=== PATIENT | female | born 1955 | race Caucasian/White ===

== ENCOUNTER 2021-12-02 01:09 | Day surgery (SDC) | payer MEDICARE, SELFPAY ==
[2021-11-15 13:21] VITALS: BMI 21.4
[2021-12-02 12:38] VITALS: BP 123/81; PULSE 61; RESP 18; TEMP 36.1; O2SAT 96; BMI 21.4
[2021-12-02] MEDS: LACTATED RINGERS 1,000 ML 150 ML IV CONT (12:41)
--- NOTE | 2021-12-02 12:58 | PM.HPGS ---
History of Present Illness History of Present Illness Consent: Risks, benefits, and alternatives have been discussed and questions answered. Patient agrees to proceed with procedure. Chief complaint: GERD, Nausea, change in bowel habits Narrative: Miroslava Batres is a 66 year old female With a history of gastric ulcers. Apparently her last EGD did not reveal ulcers. She has suffered from a great deal of abdominal pain and change in bowel habits. She has been very constipated lately. Trials of Linzess and also Trulance were not Well tolerated. They did not relieve her of abdominal discomfort and bloating although did cause loose stools. Review of Systems Review of Systems: All systems reviewed & are unremarkable except as noted in HPI and below PMFSH Past Medical History Medical History Abdominal pain Anxiety Arthritis Gastric ulcer Hip replacement planned Irritable bowel syndrome with predominant constipation Family History Family History Father Cerebrovascular accident Mother Hypertension Social History Social History Smoking status: Never smoker Alcohol intake: current Alcohol use details: social Substance use: never Substance use type: does not use Living arrangements: with family Additional living arrangements comments: lives with family Spiritual care concerns: No Meds Home Medications and Allergies Home Medications Medication Instructions Recorded Confirmed Type acyclovir 400 mg tablet 400 mg PO DAILY 08/02/21 12/02/21 History alprazolam 0.25 mg tablet 0.25 mg PO DAILY 08/02/21 12/02/21 History azathioprine 50 mg tablet (Imuran) 50 mg PO DAILY 08/02/21 12/02/21 History celecoxib 200 mg capsule (Celebrex) 200 mg PO DAILY 08/02/21 12/02/21 History cyanocobalamin (vitamin B-12) 1,000 mcg PO DAILY 08/02/21 12/02/21 History 1,000 mcg capsule cyclobenzaprine 10 mg tablet 10 mg PO TID 08/02/21 12/02/21 History dexlansoprazole 60 mg 60 mg PO DAILY 08/02/21 12/02/21 History capsule,biphase delayed release (Dexilant) diclofenac sodium 1 % topical gel 2 g topical QID 08/02/21 11/12/21 History duloxetine 60 mg capsule,delayed 60 mg PO DAILY 08/02/21 12/02/21 History release sprinkle folic acid 800 mcg tablet 0.8 mg PO DAILY 08/02/21 12/02/21 History gabapentin 400 mg capsule 400 mg PO DAILY 08/02/21 12/02/21 History hydroxychloroquine 200 mg tablet 200 mg PO DAILY 08/02/21 12/02/21 History (Plaquenil) magnesium glycinate 100 mg tablet 100 mg PO DAILY 08/02/21 12/02/21 History ondansetron HCl 4 mg tablet 4 mg PO Q8H 08/02/21 12/02/21 History tramadol 50 mg tablet 50 mg PO Q6H PRN Pain, Mild 08/02/21 12/02/21 History tumeric 100 mg-chris 150 mg-olive 100 cap PO 08/02/21 11/12/21 History 50 mg-oreg 150 mg-caprylate capsule plecanatide 3 mg tablet (Trulance) 3 mg PO DAILY 1 month #30 tabs 10/29/21 12/02/21 Rx Allergies Allergy/AdvReac Type Severity Reaction Status Date / Time No Known Allergies Allergy Verified 12/02/21 12:35 Vital Signs Vital Signs - 24 hr 12/02/21 12:38 Temperature 36.1 C L Pulse Rate 61 Respiratory Rate 18 Blood Pressure 123/81 Pulse Oximetry 96 Oxygen Delivery Room Air Exam Const: General: alert Orientation/consciousness: patient oriented x3 Resp: Auscultation: clear to auscultation bilaterally Cardio: Rhythm: regular rhythm GI: GI Palp: Yes Soft to palpation and No Tenderness to palpation present (GI) Neuro: General: patient oriented x3 Assessment and Plan Assessment and plan (1) Epigastric pain: Code(s): R10.13 - Epigastric pain Status: Acute Assessment and Plan: EGD with possible biopsy or dilatation or cautery. (2) Change in bowel habits: Code(s): R19.4 - Change in bowel habit Status: Acute Assessment and Plan:
--- NOTE | 2021-12-02 13:43 | SUR.OPER ---
EGD END 1337 COLONOSCOPY START 1348
[2021-12-02 14:00] VITALS: BP 130/75; PULSE 59; RESP 24; O2SAT 98
[2021-12-02 14:10] VITALS: BP 138/75; PULSE 54; RESP 23; O2SAT 100
[2021-12-02 14:20] VITALS: BP 131/74; PULSE 54; RESP 24; O2SAT 100
== END 2021-12-02 14:35 | disposition home or self-care (01) ==
PROVIDERS: PCP Family Medicine; Visit Provider Internal Medicine Gastroenterology
PROC: 0DJ08ZZ Inspection of Upper Intestinal Tract, Via Natural or Artificial Opening Endoscopic (ICD-10-PCS; CPT 43235; principal; 2021-12-02 13:30)
DX: R19.4 Change in bowel habit (principal); D12.8 Benign neoplasm of rectum; R10.13 Epigastric pain; K21.9 Gastro-esophageal reflux disease without esophagitis; F41.9 Anxiety disorder, unspecified; R10.9 Unspecified abdominal pain; Z87.11 Personal history of peptic ulcer disease; K58.1 Irritable bowel syndrome with constipation
CPT/HCPCS: 45385; 43239; 87081; 88305; J2704; J7120

== ENCOUNTER 2022-01-08 09:59 | Outpatient (CLI) | payer MEDICARE, SELFPAY ==
--- NOTE | ~2022-01-08 | US_ITS ---
US abdomen complete EXAMINATION: US Abdomen Complete INDICATION: Abdomen pain PROCEDURE: Realtime High Resolution abdomen ultrasound. COMPARISON: No prior studies for comparison FINDINGS: Gallbladder within normal limits. No gallstones, pericholecystic fluid, gallbladder wall t hickening or biliary dilatation. Common bile duct measures 6 mm. Liver echotexture within normal limits without focal mass. Pancreas within normal limits. Pancreati c tail is obscured by bowel gas. Spleen is unremarkeable. Renal echotexture is within normal limits bilaterally without hydronephrosis, contour deforming mass or renal stone. Right kidney measures 8.9 cm. Left kidney measures 9.5 cm. Visualized aspects of the aorta and IVC are within normal limits. Portal vein is patent. No sonograph ic Sepulveda's sign indicated by the technologist. IMPRESSION: 1: Normal abdominal ultrasound. Reviewed, dictated and finalized at location B.
--- NOTE | ~2022-01-08 | NM_ITS ---
EXAMINATION: NM hepatobiliary wo pharm DATE: 01/08/2022 12:43 CDT INDICATION: Abdominal pain, bloating and nausea COMPARISON: None. TECHNIQUE: 4.9 mCi Tc-99m mebrofenin (Choletec) was administered intravenously. Scintigraphic images of the abdomen were obtained for one hour. At the 1 hour time point, the patient drank 8 oz Ensure, and imaging was continued for 60 minutes. Gallbladder ejection fraction was calculated by the technol ogist. FINDINGS: There is normal clearance of radiotracer from the blood pool. There is homogeneous tracer u ptake by the liver. Activity progresses to the bowel and gallbladder. The gallbladder ejection fract ion is 80%. Note that with this technique, normal GBEF >= 33%. IMPRESSION: 1. Normal hepatobiliary scan. Reviewed, dictated and finalized at location B.
== END 2022-01-08 10:00 | disposition home or self-care (01) ==
PROVIDERS: PCP Family Medicine; Visit Provider Nurse Practitioner Family
DX: R10.9 Unspecified abdominal pain (principal); R11.0 Nausea; R14.0 Abdominal distension (gaseous)
CPT/HCPCS: 76700; 78226; A9537

== ENCOUNTER 2022-01-29 10:30 | Outpatient (CLI) | payer MEDICARE, SELFPAY ==
[2022-01-29 10:52] LABS: Hematocrit 37.1 % (37.0-47.0); Hemoglobin 12.4 g/dL (12.0-15.0); Mean Corpuscular HGB Conc 33.4 g/dl (32-36); Mean Corpuscular Hemoglobin 35.2 pg (26-34); Mean Corpuscular Volume 105.4 fl (80-100); Platelet Count Result 217 k/mm3 (150-375); Red Blood Count 3.52 M/mm3 (4.2-5.4); Red Cell Distribution Width 12.7 % (11.5-14.5); White Blood Count 3.6 K/mm3 (4.5-10.0)
[2022-01-29 11:05] LABS: Alanine Aminotransferase 15 U/L (6-35); Albumin Level 4.4 g/dL (3.5-5.1); Alkaline Phosphatase 59 U/L (38-126); Anion Gap 6 mmol/L (8-16); Aspartate Amino Transferase 21 U/L (14-36); Bilirubin,Total 0.6 mg/dL (0.2-1.3); Blood Urea Nitrogen 6 mg/dL (7-17); Calcium 9.2 mg/dL (8.4-10.2); Carbon Dioxide 32 mmol/L (22-30); Chloride 101 mmol/L (98-107); Estimated Glomerular Filt Rate > 60; Glucose 88 mg/dL (65-110); Potassium 4.4 mmol/L (3.4-5.0); Sodium 139 mmol/L (137-145)
[2022-01-29 12:21] LABS: Folic Acid > 20.0 ng/mL (2.76->20)
[2022-02-03 21:18] LABS: Gliadin AB, IgG <1.0 U/mL (<15.0); TTG IGA AB <1.0 U/mL (<15.0)
== END 2022-01-29 10:31 | disposition home or self-care (01) ==
PROVIDERS: PCP Family Medicine; Visit Provider Nurse Practitioner Family
DX: R14.0 Abdominal distension (gaseous) (principal); K59.00 Constipation, unspecified; R10.13 Epigastric pain
CPT/HCPCS: 36415; 80053; 82607; 82746; 83516; 84443; 85027; 86255

== ENCOUNTER 2022-02-13 07:29 | Outpatient (CLI) | payer MEDICARE, SELFPAY ==
--- NOTE | ~2022-02-13 | NM_ITS ---
EXAM: NM gastric emptying study DATE: 02/13/2022 12:56 SOAPSTONER INDICATION: Postprandial bloating and gas TECHNIQUE: A gastric emptying study was performed using the methodology of Darius AVALOS, et al. J Nucl Med 2007; 48:568-572. The patient was given a meal consisting of 2 scrambled eggs labeled with mCi T c-99m sulfur colloid, 2 slices of toast, two packages of jam, and approximately 120 mL of water. Simu ltaneous anterior and posterior 1-min images of the abdomen were obtained with the patient supine at multiple time points over a total period of 4 hours. The geometric mean of anterior and posterior vie ws was determined, and the percentage retention was calculated for each time point. COMPARISON: Ultrasound dated 01/08/2022. FINDINGS: Gastric retention of the radiotracer-labeled meal was 56%, 26%, and 4% at the 1-hour, 2-ho ur, and 4-hour time points, respectively. With this technique, apparent rapid gastric emptying is sug gested by <30% gastric retention at 1 hour. Delayed gastric emptying is defined by gastric retention of >90% at 1 hour, >60% retention at 2 hours, or >10% retention at 4 hours. IMPRESSION: 1. Normal gastric emptying. Reviewed, dictated and finalized at location A. STONER IMPRESSION: 1. Normal gastric emptying.
== END 2022-02-13 07:30 | disposition home or self-care (01) ==
PROVIDERS: PCP Family Medicine; Visit Provider Nurse Practitioner Family
DX: R14.0 Abdominal distension (gaseous) (principal)
CPT/HCPCS: 78264; A9541

== ENCOUNTER 2023-11-10 06:11 | Day surgery (SDC) | payer MEDICARE, SELFPAY ==
[2023-11-04 08:21] VITALS: BMI 21.1
[2023-11-04 10:19] VITALS: BMI 23.1
--- NOTE | 2023-11-09 12:47 | PM.HPGS ---
History of Present Illness History of Present Illness Consent: Risks, benefits, and alternatives have been discussed and questions answered. Patient agrees to proceed with procedure. Chief complaint: Epigastric pain,Gastro-esophageal reflux disease Narrative: Miroslava Batres is a 68 year old female with Nausea/Vomiting/Epigastric pain/Burning sensation: Last EGD in 2021 showed non-erosive reflux disease (NERD). Patient reports vomiting at least 4 times a week, primarily in the mornings, persistent nausea worse in the mornings, and burning sensation in the epigastric region radiating to the right upper quadrant for the past 6 weeks. Review of Systems Review of Systems: All systems reviewed & are unremarkable except as noted in HPI and below PMFSH Past Medical History Medical History Abdominal bloating Abdominal pain Anxiety Arthritis Constipation Gastric ulcer Hip replacement planned Irritable bowel syndrome with predominant constipation Nausea and vomiting Family History Family History Father Cerebrovascular accident Mother Hypertension Social History Social History Smoking status: Never smoker Alcohol intake: current Drinks per week: 2 Alcohol use details: social Substance use: never Substance use type: does not use Living arrangements: with family Additional living arrangements comments: lives with family Spiritual care concerns: No Meds Home Medications and Allergies Home Medications Medication Instructions Recorded Confirmed Type acyclovir 400 mg tablet 400 mg PO DAILY PRN breakout 08/02/21 11/10/23 History alprazolam 0.25 mg tablet 0.25 mg PO DAILY PRN Anxiety 08/02/21 11/10/23 History azathioprine 50 mg tablet (Imuran) 50 mg PO DAILY 08/02/21 11/10/23 History celecoxib 200 mg capsule (Celebrex) 200 mg PO DAILY 08/02/21 11/10/23 History cyanocobalamin (vitamin B-12) 1,000 mcg PO DAILY 08/02/21 11/10/23 History 1,000 mcg capsule diclofenac sodium 1 % topical gel 2 g topical QID PRN Pain, Mild 08/02/21 11/10/23 History duloxetine 60 mg capsule,delayed 60 mg PO DAILY 08/02/21 11/10/23 History release sprinkle folic acid 800 mcg tablet 0.8 mg PO DAILY 08/02/21 11/10/23 History gabapentin 400 mg capsule 400 mg PO DAILY 08/02/21 11/10/23 History hydroxychloroquine 200 mg tablet 200 mg PO DAILY 08/02/21 11/10/23 History (Plaquenil) magnesium glycinate 100 mg (as 100 mg PO DAILY 08/02/21 11/10/23 History glycinate) tablet tramadol 50 mg tablet 50 mg PO Q6H PRN Pain, Mild 08/02/21 11/10/23 History belimumab 120 mg intravenous 400 mg IV ONCE 08/03/23 11/10/23 History solution (Benlysta) dicyclomine 20 mg tablet 20 mg PO TID PRN abdominal pain 08/31/23 11/10/23 Rx #30 tabs lubiprostone 24 mcg capsule 24 mcg PO BID 1 month #60 caps 08/31/23 11/10/23 Rx (Amitiza) dexlansoprazole 60 mg 60 mg PO DAILY 3 months #90 caps 09/22/23 11/10/23 Rx capsule,biphase delayed release (Dexilant) ondansetron HCl 4 mg tablet 4 mg PO Q8H PRN nausea and 10/20/23 11/10/23 Rx vomiting #20 tabs Allergies Allergy/AdvReac Type Severity Reaction Status Date / Time No Known Allergies Allergy Verified 11/10/23 06:57 Exam Const: General: alert Orientation/consciousness: patient oriented x3 Resp: Auscultation: clear to auscultation bilaterally Cardio: Rhythm: regular rhythm GI: GI Palp: Yes Soft to palpation and No Tenderness to palpation present (GI) Neuro: General: patient oriented x3 Assessment and Plan Assessment and plan (1) Nausea and vomiting: Code(s): R11.2 - Nausea with vomiting, unspecified Status: Acute
--- NOTE | 2023-11-09 13:47 | WPDANESEPPF ---
Anes - Initial Pre Proc Eval Procedure: Operation Date: 11/10/23 08:00 Proposed Procedures p Esophagogastroduodenoscopy - Sidney Sosa MD Date/Time: 11/09/23 13:47 Surgeon: Sidney Sosa MD Pre Op Diagnosis: Epigastric pain,Gastro-esophageal reflux disease Patient Data Age: 68 Gender: F Height: 1.73 m Weight: 69 kg Allergies Allergy/AdvReac Type Severity Reaction Status Date / Time No Known Allergies Allergy Verified 11/10/23 06:57 Home Medications Medication Instructions Recorded Confirmed Type acyclovir 400 mg tablet 400 mg PO DAILY PRN breakout 08/02/21 11/10/23 History alprazolam 0.25 mg tablet 0.25 mg PO DAILY PRN Anxiety 08/02/21 11/10/23 History azathioprine 50 mg tablet (Imuran) 50 mg PO DAILY 08/02/21 11/10/23 History celecoxib 200 mg capsule (Celebrex) 200 mg PO DAILY 08/02/21 11/10/23 History cyanocobalamin (vitamin B-12) 1,000 mcg PO DAILY 08/02/21 11/10/23 History 1,000 mcg capsule diclofenac sodium 1 % topical gel 2 g topical QID PRN Pain, Mild 08/02/21 11/10/23 History duloxetine 60 mg capsule,delayed 60 mg PO DAILY 08/02/21 11/10/23 History release sprinkle folic acid 800 mcg tablet 0.8 mg PO DAILY 08/02/21 11/10/23 History gabapentin 400 mg capsule 400 mg PO DAILY 08/02/21 11/10/23 History hydroxychloroquine 200 mg tablet 200 mg PO DAILY 08/02/21 11/10/23 History (Plaquenil) magnesium glycinate 100 mg (as 100 mg PO DAILY 08/02/21 11/10/23 History glycinate) tablet tramadol 50 mg tablet 50 mg PO Q6H PRN Pain, Mild 08/02/21 11/10/23 History belimumab 120 mg intravenous 400 mg IV ONCE 08/03/23 11/10/23 History solution (Benlysta) dicyclomine 20 mg tablet 20 mg PO TID PRN abdominal pain 08/31/23 11/10/23 Rx #30 tabs lubiprostone 24 mcg capsule 24 mcg PO BID 1 month #60 caps 08/31/23 11/10/23 Rx (Amitiza) dexlansoprazole 60 mg 60 mg PO DAILY 3 months #90 caps 09/22/23 11/10/23 Rx capsule,biphase delayed release (Dexilant) ondansetron HCl 4 mg tablet 4 mg PO Q8H PRN nausea and 10/20/23 11/10/23 Rx vomiting #20 tabs Patient hx anesthesia problems: none Family hx anesthesia problems: none Results Review: All pre-operative results and documents have been reviewed as part of the pre-operative evaluation. [facility] Past Medical History Medical History (Updated 10/20/23 @ 11:17 by ESPINOZA Higgins) Abdominal bloating Abdominal pain Anxiety Arthritis Constipation Gastric ulcer Hip replacement planned Irritable bowel syndrome with predominant constipation Nausea and vomiting Family History Family History Father Cerebrovascular accident Mother Hypertension Social History Social History Smoking status: Never smoker Alcohol intake: current Drinks per week: 2 Alcohol use details: social Substance use: never Substance use type: does not use Living arrangements: with family Additional living arrangements comments: lives with family Spiritual care concerns: No Anes - Eval Final PreProcedure Day of Procedure 11/09/23 13:47 Patient weight: normal Heart: regular rate and rhythm Lungs: clear to auscultation and normal air movement Airway: Mallampati scale class II Neurological: alert and oriented Last oral intake: >/= 8 hours ASA classification: II Emergent: no Anesthetic plan: proceed Anesthesia type and monitoring: general GIVS and standard monitoring Results Review: All pre-operative results and documents have been reviewed as part of the pre-operative evaluation. Informed Consent: The patient's anesthetic plan and its attendant risks and benefits were discussed with the patient/family/POA. Questions were solicited and answers provided to the satisfaction of the patient/family/POA.
[2023-11-10 06:59] VITALS: BP 124/91; PULSE 78; RESP 15; TEMP 36.9; O2SAT 100
[2023-11-10] MEDS: LACTATED RINGERS 1,000 ML 150 ML IV CONT (07:01)
[2023-11-10] MEDS: AMPICILLIN 2 GM/NS 100 ML 2 GM/100 ML BAG IVPB (07:08)
[2023-11-10 08:01] VITALS: BP 104/70; PULSE 74; RESP 16; O2SAT 100
[2023-11-10 08:11] VITALS: BP 99/66; PULSE 68; RESP 16; O2SAT 100
[2023-11-10 08:21] VITALS: BP 114/70; PULSE 72; RESP 16; O2SAT 100
--- NOTE | 2023-11-10 09:54 | WPDANESPN ---
Anes - Prog Note Post-Op Date/Time: 11/10/23 09:54 Cardiovascular status: normal Respiratory status: normal Airway patency: baseline Mental status: baseline Post-Op hydration status: normal Vital Signs: Last Vital Signs Temp 36.9 C 11/10/23 06:59 Pulse 72 11/10/23 08:21 Resp 16 11/10/23 08:21 BP 114/70 11/10/23 08:21 Pulse Ox 100 11/10/23 08:21 O2 Del Method Room Air 11/10/23 08:21 Pain Score (VAS): 0 I/O: Intake & Output 11/09/23 11/10/23 11/10/23 23:59 07:59 15:59 Intake Total 450 Balance 450 Post-procedural complaints: none Patient Feedback: Patient satisfied with anesthetic care. Other Findings: Patient vital signs back to baseline. Patient denies nausea and vomiting. Patient's pain under control. Patient OK for discharge.
== END 2023-11-10 08:35 | disposition home or self-care (01) ==
PROVIDERS: Visit Provider Internal Medicine Gastroenterology
PROC: 0DJ08ZZ Inspection of Upper Intestinal Tract, Via Natural or Artificial Opening Endoscopic (ICD-10-PCS; CPT 43235; principal; 2023-11-10 08:00)
DX: R11.2 Nausea with vomiting, unspecified (principal); K31.84 Gastroparesis
CPT/HCPCS: 43239

== ENCOUNTER 2023-11-10 07:27 | Outpatient (NON) | payer MEDICARE, SELFPAY | END 2023-11-10 07:28 | disposition home or self-care (01) | LOC: ANHLAB 11-11 07:30 | PROVIDERS: Visit Provider Internal Medicine Gastroenterology | DX: K21.9 Gastro-esophageal reflux disease without esophagitis (principal) | CPT/HCPCS: 88305 ==

== ENCOUNTER 2023-11-26 07:37 | Outpatient (CLI) | payer MEDICARE, SELFPAY ==
--- NOTE | ~2023-11-26 | NM_ITS ---
EXAM: NM gastric emptying study DATE: 11/26/2023 12:22 INDICATION: Nausea and vomiting, unspecified. TECHNIQUE: A gastric emptying study was performed using the methodology of Darius AVALOS, et al. J Nucl Med 2007; 48:568-572. The patient was given a meal consisting of 2 scrambled eggs labeled with 0.96 mCi Tc-99m sulfur colloid, 2 slices of toast, two packages of jam, and approximately 120 mL of water. Simultaneous anterior and posterior 1-min images of the abdomen were obtained with the patient supin e at multiple time points over a total period of 4 hours. The geometric mean of anterior and posterio r views was determined, and the percentage retention was calculated for each time point. COMPARISON: Gastric emptying study 02/13/2022 FINDINGS: Gastric retention of the radiotracer-labeled meal was 57%, 30%, and 1% at the 1-hour, 2-ho ur, and 4-hour time points, respectively. With this technique, apparent rapid gastric emptying is sug gested by <30% gastric retention at 1 hour. Delayed gastric emptying is defined by gastric retention of >90% at 1 hour, >60% retention at 2 hours, or >10% retention at 4 hours. IMPRESSION: 1. Normal gastric emptying. Reviewed, dictated and finalized at location A. IMPRESSION: 1. Normal gastric emptying.
== END 2023-11-26 07:38 | disposition home or self-care (01) ==
PROVIDERS: Visit Provider Nurse Practitioner Family
DX: R11.2 Nausea with vomiting, unspecified (principal)
CPT/HCPCS: 78264; A9541